=== PATIENT | male | born 1950 | race Caucasian/White ===

== ENCOUNTER 2019-03-10 22:20 | Emergency (ER) | payer BC, MEDICARE ==
[~2019-03-10] VITALS: Ht 188 cm; Wt 137.0 kg
--- NOTE | 2019-03-10 23:10 | NUR ---
Dr. Lugo at bedside for MSE.
[2019-03-10 23:43] LABS: BASOPHILS % (AUTO) 0.5 % (0.0-2.0); EOSINOPHILS # (AUTO) 0.4 K/uL (0.0-0.7); EOSINOPHILS % (AUTO) 4.6 % (0.0-7.0); HEMATOCRIT 41.9 % (36.7-47.1); HEMOGLOBIN 14.2 g/dL (12.5-16.3); LYMPHOCYTES # (AUTO) 1.5 K/uL (20.0-40.0); LYMPHOCYTES % (AUTO) 18.5 % (20.5-51.5); MEAN CORPUSCULAR HEMOGLOBIN 28.1 uug (23.8-33.4); MEAN CORPUSCULAR HGB CONC 34 g/dL (32.5-36.3); MEAN CORPUSCULAR VOLUME 83.2 fL (73.0-96.2); MONOCYTES # (AUTO) 0.9 K/uL (2.0-10.0); MONOCYTES % (AUTO) 10.9 % (0.0-11.0); NEUTROPHILS # (AUTO) 5.4 K/uL (1.8-8.9); NEUTROPHILS % (AUTO) 65.5 % (38.5-71.5); PLATELET COUNT (AUTO) 239 K/uL (152-348); RED BLOOD CELL COUNT(AUTO) 5.03 MIL/uL (4.06-5.63); WHITE BLOOD COUNT (AUTO) 8.3 K/uL (3.6-10.2)
--- NOTE | 2019-03-10 23:45 | NUR ---
Pt out of ER for CT.
[2019-03-10 23:50] LABS: CREATININE 1.2 mg/dL (0.6-1.3); POTASSIUM 3.4 mmol/L (3.5-5.1)
[2019-03-10 23:56] LABS: BILIRUBIN,DIRECT 0.1 mg/dL (0.0-0.2); BILIRUBIN,TOTAL 0.6 mg/dL (0.2-1.0); TOTAL PROTEIN, SERUM 7.1 g/dL (6.4-8.2)
--- NOTE | 2019-03-11 00:05 | NUR ---
Pt back to ER from CT.
--- NOTE | 2019-03-11 00:36 | NUR ---
Assisted patient to bathroom via wheelchair, no falls noted, pt provided urine sample, sent to lab.
[2019-03-11 00:42] LABS: *BILIRUBIN,URIN NEGATIVE (NEGATIVE); *BLOOD, URINE NEGATIVE (NEGATIVE); *CLARITY,URINE CLEAR (CLEAR); *COLOR,URINE YELLOW (YELLOW); *KETONES,URINE NEGATIVE (NEGATIVE); *UROBILINOGEN,URINE 0.2 E.U./dl (NORMAL); LEUKOCYTE ESTERASE ,URINE NEGATIVE (NEGATIVE); NITRITE, URINE NEGATIVE (NEGATIVE); UGLUCOSE NEGATIVE (NEGATIVE)
[2019-03-11] MEDS ORDERED: TDAP DIPH,PERTUSS,TET VAC/PF 0.5 ML DISP.SYRIN IM ONE ×2 (01:28→01:30)
--- NOTE | 2019-03-11 01:58 | NUR ---
Patient discharged to home in stable conditon. Written and verbal after care instructions given. Patient verbalizes understanding of instructions. Pt out of ER via wheelchair, assisted patient to car, no falls noted, VSS, no acute signs of distress, all belongings taken, to be driven home by son via private vehicle.
[2019-03-11 01:59] VITALS: BP 152/72
== END 2019-03-11 01:59 | disposition home or self-care (01) ==
LOC: ER 22:22
DX: S01.01XA Laceration without foreign body of scalp, initial encounter (principal); E11.9 Type 2 diabetes mellitus without complications; E78.5 Hyperlipidemia, unspecified; W10.9XXA Fall (on) (from) unspecified stairs and steps, initial encounter; Y93.89 Activity, other specified; Y92.89 Other specified places as the place of occurrence of the external cause; Y99.8 Other external cause status
CPT/HCPCS: 12001; 36415; 70450; 80048; 80076; 81001; 85025; 90471; 90715; 93005; 99284; J3490; A4217; A4663

== ENCOUNTER 2019-03-16 15:46 | Emergency (ER) | END 2019-03-16 16:03 | disposition left against medical advice (07) | DX: Z53.21 Procedure and treatment not carried out due to patient leaving prior to being seen by health care provider (principal) ==

== ENCOUNTER 2019-03-17 13:25 | Emergency (ER) | END 2019-03-17 14:14 | disposition home or self-care (01) | DX: S01.01XD Laceration without foreign body of scalp, subsequent encounter (principal); E11.9 Type 2 diabetes mellitus without complications; E78.5 Hyperlipidemia, unspecified; X58.XXXD Exposure to other specified factors, subsequent encounter ==

== ENCOUNTER 2020-03-01 15:44 | Emergency (ER) | payer MEDICARE ==
[~2020-03-01] VITALS: Ht 188 cm; Wt 140.6 kg
--- NOTE | 2020-03-01 16:05 | NUR ---
PT WAS TRIAGED. THERE ARE NO ER BEDS AVAILABLE AT THIS TIME. PT IS WAITING IN THE ER WAITING ROOM.
--- NOTE | 2020-03-01 21:56 | NUR ---
Patient not in waiting room, called x 3.
== END 2020-03-01 21:58 | disposition left against medical advice (07) ==
LOC: ER 15:44
DX: S09.90XA Unspecified injury of head, initial encounter (principal); W19.XXXA Unspecified fall, initial encounter; Y92.89 Other specified places as the place of occurrence of the external cause
CPT/HCPCS: 70450; A4663